=== PATIENT | female | born 1985 | race Caucasian/White ===

== ENCOUNTER 2020-09-10 14:48 | Emergency (ER) | payer BC, OTHER, SELFPAY ==
[~2020-09-10] VITALS: Ht 175.3 cm; Wt 85.7 kg
[2020-09-10 14:48] VITALS: BP 112/63
[2020-09-10] MEDS ORDERED: AUGM875T28 PO (15:24)
[2020-09-10] MEDS ORDERED: KETO10TAB PO (15:24)
[2020-09-10] MEDS ORDERED: LIDVISCBTL SSP (15:24)
== END 2020-09-10 15:47 | disposition home or self-care (01) ==
LOC: M ED 14:48
DX: K04.7 Periapical abscess without sinus (principal); S02.5XXA Fracture of tooth (traumatic), initial encounter for closed fracture; X58.XXXA Exposure to other specified factors, initial encounter; Y92.9 Unspecified place or not applicable; Y93.9 Activity, unspecified; Y99.9 Unspecified external cause status; F17.200 Nicotine dependence, unspecified, uncomplicated; Z88.5 Allergy status to narcotic agent

== ENCOUNTER 2020-09-13 03:44 | Emergency (ER) | payer SELFPAY ==
[~2020-09-13] VITALS: Ht 175.3 cm; Wt 77.3 kg
[~2020-09-13 03:44] MED LIST: AUGM875T28 PO; KETO10TAB PO; LIDVISCBTL SSP
[2020-09-13] MEDS ORDERED: IBUP-1022 PO (03:50)
[2020-09-13] MEDS ORDERED: LIDOCAINE 2% W/ EPINEPHRINE 1.7 ML DENTAL INJ SM ONE (05:45)
[2020-09-13] MEDS: ARTICAINE HCL/EPINEPHRINE 4%-1:200,000 1.7ML INJ (SEPTOCAINE) SM ONE ×2 (05:47→06:04)
[2020-09-13 06:10] VITALS: BP 120/70
== END 2020-09-13 06:10 | disposition home or self-care (01) ==
LOC: M ED 03:44
DX: K08.89 Other specified disorders of teeth and supporting structures (principal); F17.218 Nicotine dependence, cigarettes, with other nicotine-induced disorders; Z88.5 Allergy status to narcotic agent

== ENCOUNTER → 2020-11-27 | Outpatient (CLI) | payer SELFPAY ==
[~2020-11-27] MED LIST changes: +IBUP-1022 PO
== END ==
LOC: M LABSMTC 14:03
PROVIDERS: ATTEND Pediatrics
DX: Z20.822 Contact with and (suspected) exposure to COVID-19 (principal)

== ENCOUNTER 2020-11-28 17:41 | Emergency (ER) | payer SELFPAY ==
[~2020-11-28] VITALS: Ht 175.3 cm; Wt 82.5 kg
[2020-11-28] MEDS ORDERED: NS 1,000 ML IV ONE (18:45)
[2020-11-28] MEDS ORDERED: GI COCKTAIL 50ML BTL(HYOSCYAMINE/MAALOX/LIDOCAINE VISCOUS)(1:3:1) PO ONE (18:45)
[2020-11-28 19:18] LABS: BASO % 0.4 % (0.0-1.0); EOS # 0.1 10^3/uL (0.0-0.5); EOS % 1.9 % (0.0-3.0); HEMATOCRIT 38.4 % (36.0-47.0); HEMOGLOBIN 11.9 g/dl (12.0-15.5); LYMPH # 1.9 10^3/uL (1.5-5.0); LYMPH % 28.4 % (24.0-44.0); MEAN CORPUSCULAR HEMOGLOBIN 27.9 pg (27.0-33.0); MEAN CORPUSCULAR VOLUME 89.9 fl (80.0-96.0); MONO # 0.5 10^3/uL (0.0-0.8); MONO % 6.6 % (0.0-5.0); NEUTROPHILS # 4.2 10^3/uL (1.5-8.5); NEUTROPHILS % 62.4 % (36.0-66.0); PLATELET COUNT, AUTOMATED 218 10^3/uL (150-450); RED BLOOD COUNT 4.27 10^6/uL (4.00-5.40); WHITE BLOOD COUNT 6.8 10^3/uL (4.0-10.0)
[2020-11-28 19:51] LABS: ALBUMIN 4.3 GM/DL (3.2-5.2); ALT/SGPT 22 U/L (12-78); BILIRUBIN,DIRECT 0.1 MG/DL (0.0-0.2); BILIRUBIN,TOTAL 0.4 MG/DL (0.2-1.0); BLOOD UREA NITROGEN 15 MG/DL (7-18); CARBON DIOXIDE LEVEL 24 MEQ/L (21-32); CHLORIDE LEVEL 110 MEQ/L (98-107); CK-MB VALUE MASS < 1.0 NG/ML (<3.6); CPK CREATINE PHOSPHOKINASE 59 U/L (26-192); CREATININE FOR GFR 0.85 MG/DL (0.55-1.30); GLOMERULAR FILTRATION RATE > 60.0 (>60); GLUCOSE, FASTING 79 MG/DL (70-100); LIPASE 409 U/L (73-393); MB/CK RELATIVE INDEX 1.69 (< OR =4); POTASSIUM SERUM 4.4 MEQ/L (3.5-5.1); SODIUM LEVEL 138 MEQ/L (136-145); TOTAL PROTEIN 7.3 GM/DL (6.4-8.2); TROPONIN I < 0.02 NG/ML (< 0.10)
[2020-11-28 20:29] VITALS: BP 114/67
--- NOTE | 2020-11-28 21:55 | ECGEPIP ---
[facility] - ED Test Date: 2020-11-28 Pat Name: SOLOMON NOEL Department: Room: - Gender: Female [employer]: : 1985 Requested By: RAFITA Silveira PA-C Order Number: [id number] Reading MD: Eric Celestin Measurements Intervals [place] Rate: 53 P: 52 NH: 169 QRS: 47 QRSD: 93 T: 23 QT: 398 QTc: 376 Interpretive Statements SINUS BRADYCARDIA WITH SINUS ARRHYTHMIA BENIGN EARLY REPOLARIZATION NO PRIORS FOR COMPARISON Electronically Signed on 11-28-2020 21:55:12 EST by Eric Celestin
== END 2020-11-28 20:29 | disposition home or self-care (01) ==
LOC: M ED 17:41
DX: K85.90 Acute pancreatitis without necrosis or infection, unspecified (principal); R00.1 Bradycardia, unspecified; F11.10 Opioid abuse, uncomplicated; F17.200 Nicotine dependence, unspecified, uncomplicated; Z88.5 Allergy status to narcotic agent

== ENCOUNTER 2022-10-10 15:16 | Inpatient (IN) | payer OTHER, SELFPAY ==
[~2022-10-10] VITALS: Ht 175.3 cm; Wt 90.0 kg
[2022-10-10 16:58] LABS: HEMATOCRIT 40.5 % (36.0-47.0); HEMOGLOBIN 12.6 g/dl (12.0-15.5); MEAN CORPUSCULAR HEMOGLOBIN 26.1 pg (27.0-33.0); MEAN CORPUSCULAR HGB CONC 31.1 g/dl (32.0-36.5); PLATELET COUNT, AUTOMATED 220 10^3/uL (150-450); RED BLOOD COUNT 4.82 10^6/uL (4.00-5.40); WHITE BLOOD COUNT 8.3 10^3/uL (4.0-10.0)
[2022-10-10] MEDS ORDERED: BOOSTRIX/ADACEL VACCINE (DIPHTH/PERTUSS/ACELL/TETANUS) 0.5ML SYR IM.IMMUN ONE (17:20)
[2022-10-10 17:39] LABS: RSV AMPLIFICATION NEGATIVE (NEGATIVE)
[2022-10-10 17:42] LABS: ACETAMINOPHEN LEVEL < 2.0 UG/ML (10.0-20.0); ALBUMIN 4.1 G/DL (3.2-5.2); ALT/SGPT 28 U/L (7.0-40); BILIRUBIN,DIRECT < 0.1 MG/DL (<0.4); BILIRUBIN,TOTAL 0.2 MG/DL (0.3-1.2); BLOOD UREA NITROGEN 9 MG/DL (9-23); CALCIUM LEVEL 8.8 MG/DL (8.5-10.1); CARBON DIOXIDE LEVEL 24 MMOL/L (20-31); CHLORIDE LEVEL 107 MMOL/L (98-107); CREATININE FOR GFR 0.52 MG/DL (0.55-1.30); ETHYL ALCOHOL (ETHANOL) 0.003 % (0.000-0.010); GLOMERULAR FILTRATION RATE > 60.0 (>60); GLUCOSE, FASTING 105 MG/DL (60-100); POTASSIUM SERUM 3.7 MMOL/L (3.5-5.1); SODIUM LEVEL 140 MMOL/L (136-145)
[2022-10-10 17:48] LABS: SALICYLATE LEVEL < 3.0 MG/DL (<30)
[2022-10-10 17:58] LABS: AMPHETAMINES LEVEL URINE NEGATIVE (NEGATIVE); BARBITURATES URINE NEGATIVE (NEGATIVE); BENZODIAZEPINES URINE NEGATIVE (NEGATIVE); CANNABINOIDS URINE POSITIVE (NEGATIVE); COCAINE METABOLITE URINE NEGATIVE (NEGATIVE); METHADONE URINE NEGATIVE (NEGATIVE); OPIATES URINE NEGATIVE (NEGATIVE); PHENCYCLIDINE URINE NEGATIVE (NEGATIVE)
[2022-10-11 08:09] LABS: HCG, SERUM QUALITATIVE NEGATIVE (NEGATIVE)
[2022-10-11] MEDS ORDERED: HOME MED LIST COMPLETE! XX SCH (15:10)
[2022-10-11] MEDS ORDERED: LORazepam 1 MG TAB PO PRN (15:40)
[2022-10-11] MEDS ORDERED: traZODone 50 MG TAB PO PRN (15:40)
[2022-10-11] MEDS ORDERED: MOM 30ML SUSPENSION UDC PO PRN (15:40)
[2022-10-11] MEDS ORDERED: MAALOX 30 ML SUSP *UDC PO PRN (15:40)
[2022-10-11] MEDS ORDERED: IBUPROFEN 400MG TAB PO PRN (15:40)
[2022-10-11] MEDS ORDERED: NICOTINE POLACRILEX 2 MG GUM PO ONE (16:00)
[2022-10-11] MEDS: NICOTINE POLACRILEX 2 MG GUM PO PRN (20:43)
[2022-10-11] MEDS ORDERED: hydrOXYzine 50 MG TAB PO STA (20:47)
[2022-10-12] MEDS: NICOTINE POLACRILEX 2 MG GUM PO PRN ×2 (03:05→11:16)
[2022-10-12] MEDS ORDERED: NICOTINE 21MG/24HR 1 EA TRANSDERMAL TD SCH (09:00)
[2022-10-12 14:22] VITALS: BP 108/56
[2022-10-12] MEDS: NICOTINE 21MG/24HR 1 EA TRANSDERMAL TD SCH (14:35)
[2022-10-12] MEDS: LORazepam 1 MG TAB PO PRN ×2 (14:37→23:07)
[2022-10-13 06:05] VITALS: BP 101/55
[2022-10-13] MEDS: NICOTINE 21MG/24HR 1 EA TRANSDERMAL TD SCH (11:10)
[2022-10-13] MEDS: risperiDONE 1 MG TAB PO SCH ×2 (15:32→21:41)
[2022-10-13 18:02] VITALS: BP 131/58
[2022-10-13] MEDS: QUEtiapine FUMARATE 25 MG TAB PO SCH (21:41)
[2022-10-14 06:13] VITALS: BP 99/54
[2022-10-14] MEDS: risperiDONE 1 MG TAB PO SCH ×2 (10:17→20:46)
[2022-10-14] MEDS: NICOTINE 21MG/24HR 1 EA TRANSDERMAL TD SCH (10:18)
[2022-10-14 18:00] VITALS: BP 146/63
[2022-10-14 19:24] LABS: CHOLESTEROL RISK RATIO 4.31 (<5); HDL CHOLESTEROL 40.3 MG/DL (>40); LDL CHOLESTEROL 120.7 MG/DL (<100)
[2022-10-14] MEDS: traZODone 50 MG TAB PO PRN (20:46)
[2022-10-14] MEDS: QUEtiapine FUMARATE 25 MG TAB PO SCH (20:46)
[2022-10-15 06:39] VITALS: BP 95/64
[2022-10-15] MEDS: risperiDONE 1 MG TAB PO SCH ×2 (10:09→20:33)
[2022-10-15] MEDS: NICOTINE 21MG/24HR 1 EA TRANSDERMAL TD SCH (10:10)
[2022-10-15] MEDS ORDERED: PALIPERIDONE PAL 234MG/1.5ML INJ (INVEGA)(FREE PSY INPT ONLY) IM ONE ×2 (12:15→13:00)
[2022-10-15 18:09] VITALS: BP 105/57
[2022-10-15] MEDS: NICOTINE POLACRILEX 2 MG GUM PO PRN ×2 (18:51→21:03)
[2022-10-15] MEDS: LORazepam 1 MG TAB PO PRN (18:54)
[2022-10-15] MEDS: QUEtiapine FUMARATE 25 MG TAB PO SCH (20:33)
[2022-10-16 06:25] VITALS: BP 97/65
[2022-10-16] MEDS: risperiDONE 1 MG TAB PO SCH ×2 (09:46→20:17)
[2022-10-16] MEDS: NICOTINE POLACRILEX 2 MG GUM PO PRN ×4 (12:55→21:09)
[2022-10-16] MEDS ORDERED: IBUPROFEN 400MG TAB PO PRN (13:05)
[2022-10-16] MEDS ORDERED: IBUPROFEN 800 MG TAB PO ONE (13:30)
[2022-10-16] MEDS ORDERED: IBUPROFEN 600MG TAB PO ONE (13:35)
[2022-10-16 16:18] VITALS: BP 98/60
[2022-10-16] MEDS: traZODone 50 MG TAB PO PRN (20:17)
[2022-10-16] MEDS: QUEtiapine FUMARATE 25 MG TAB PO SCH (20:17)
[2022-10-17 06:20] VITALS: BP 99/53
[2022-10-17] MEDS: risperiDONE 1 MG TAB PO SCH ×2 (09:29→20:20)
[2022-10-17] MEDS: NICOTINE POLACRILEX 2 MG GUM PO PRN ×4 (11:31→20:20)
[2022-10-17 16:38] VITALS: BP 109/88
[2022-10-17] MEDS: QUEtiapine FUMARATE 25 MG TAB PO SCH (20:20)
[2022-10-17] MEDS: traZODone 50 MG TAB PO PRN (20:20)
[2022-10-17] MEDS: LORazepam 1 MG TAB PO PRN (20:21)
[2022-10-18 05:49] VITALS: BP 104/55
[2022-10-18] MEDS: risperiDONE 1 MG TAB PO SCH (09:58)
[2022-10-18] MEDS: NICOTINE POLACRILEX 2 MG GUM PO PRN ×2 (10:00→12:45)
[2022-10-18] MEDS ORDERED: traZODone 25MG PER 1/2 TABLET PO PRN (10:25)
[2022-10-18] MEDS ORDERED: PALIPERIDONE PAL 156MG/1ML INJ(INVEGA)(FREE PSY INPT ONLY) IM ONE (12:00)
[2022-10-18] MEDS ORDERED: HALO5TAB33 PO (13:29)
[2022-10-18] MEDS ORDERED: INVE234I IM (13:29)
[2022-10-18] MEDS ORDERED: QUET1TAB17 PO (13:29)
[2022-10-18] MEDS ORDERED: TRAZ-252 PO (13:29)
[2022-10-18] MEDS ORDERED: RISP-8 PO (13:29)
[2022-10-18] MEDS ORDERED: NICO2GUM PO (13:29)
== END 2022-10-18 14:02 | disposition home or self-care (01) | DRG 750 ==
LOC: M ED 15:16 → UNDOADMIN 10-11 15:39 → M ED INP 10-11 15:39 → M PSY 10-12 14:06
PROVIDERS: ADMIT Psychiatry & Neurology Psychiatry; ATTEND Student in an Organized Health Care Education/Training Program
DX: F25.1 Schizoaffective disorder, depressive type (principal); Z91.14 Patient's other noncompliance with medication regimen; R45.851 Suicidal ideations; Z91.52 Personal history of nonsuicidal self-harm; Z91.51 Personal history of suicidal behavior; F17.210 Nicotine dependence, cigarettes, uncomplicated; Z88.5 Allergy status to narcotic agent; Z71.6 Tobacco abuse counseling

== ENCOUNTER 2023-02-21 13:44 | Emergency (ER) | payer OTHER ==
[~2023-02-21] VITALS: Ht 175.3 cm; Wt 96.8 kg
[~2023-02-21 13:44] MED LIST changes: +HALO5TAB33 PO; +INVE234I IM; +NICO2GUM PO; +QUET1TAB17 PO; +RISP-8 PO; +TRAZ-252 PO
[2023-02-21 16:15] VITALS: BP 120/67
== END 2023-02-21 16:23 | disposition home or self-care (01) ==
LOC: M ED 13:44
DX: F29 Unspecified psychosis not due to a substance or known physiological condition (principal); F17.200 Nicotine dependence, unspecified, uncomplicated; Z79.899 Other long term (current) drug therapy; Z88.5 Allergy status to narcotic agent

== ENCOUNTER → 2024-09-29 | Outpatient (REF) | payer OTHER ==
[~2024-09-29] MED LIST changes: +RISP-105 PO; -RISP-8 PO
[2024-09-29 18:10] LABS: APPEARANCE, URINE CLOUDY (CLEAR); BACTERIA, URINE AUTO 1+ (NEGATIVE); BILIRUBIN, URINE AUTO NEGATIVE (NEGATIVE); BLOOD, URINE BLOOD NEGATIVE (NEGATIVE); COLOR, URINE AMBER (YELLOW); GLUCOSE, URINE (UA) AUTO NEGATIVE (NEGATIVE); KETONE, URINE AUTO 1+ mg/dL (NEGATIVE); LEUKOCYTE ESTERASE, URINE AUTO 1+ (NEGATIVE); MUCUS, URINE LARGE (NEGATIVE); NITRITE, URINE AUTO POSITIVE (NEGATIVE); PROTEIN, URINE AUTO 1+ mg/dL (NEGATIVE); RBC, URINE AUTO 17 /HPF (0-3); SPECIFIC GRAVITY URINE AUTO 1.026 (1.002-1.035); SQUAMOUS EPITHELIAL CELL UR AU 11 /HPF (0-6); WBC, URINE AUTO 45 /HPF (0-3)
== END ==
LOC: M LAB REF 17:25
PROVIDERS: ATTEND Physician Assistant Medical
DX: N39.0 Urinary tract infection, site not specified (principal)

== ENCOUNTER 2024-12-03 18:06 | Emergency (ER) | payer OTHER ==
[~2024-12-03] VITALS: Ht 175.3 cm; Wt 101.7 kg
[2024-12-03] MEDS ORDERED: CLON0.2T (18:20)
[2024-12-03] MEDS ORDERED: CLON0.5T2 (18:20)
[2024-12-03 18:56] LABS: BASO % 0.4 % (0.0-1.0); EOS # 0.2 10^3/uL (0.0-0.5); HEMATOCRIT 41.9 % (36.0-47.0); HEMOGLOBIN 13.6 g/dl (12.0-15.5); LYMPH # 1.7 10^3/uL (1.5-5.0); LYMPH % 21.1 % (24.0-44.0); MEAN CORPUSCULAR HEMOGLOBIN 29.3 pg (27.0-33.0); MEAN CORPUSCULAR HGB CONC 32.5 g/dl (32.0-36.5); MEAN CORPUSCULAR VOLUME 90.3 fl (80.0-96.0); MONO # 0.5 10^3/uL (0.0-0.8); MONO % 6.2 % (2.0-8.0); NEUTROPHILS # 5.5 10^3/uL (1.5-8.5); PLATELET COUNT, AUTOMATED 266 10^3/uL (150-450); RED BLOOD COUNT 4.64 10^6/uL (4.00-5.40); WHITE BLOOD COUNT 7.9 10^3/uL (4.0-10.0)
[2024-12-03] MEDS: PANTOPRAZOLE 40MG VIAL IV ONE (19:18)
[2024-12-03 19:23] LABS: LIPASE 35 U/L (12-53)
[2024-12-03 19:25] LABS: ALBUMIN 3.9 G/DL (3.2-5.2); ALKALINE PHOSPHATASE 73 U/L (35-104); ALT/SGPT 41 U/L (7.0-40); AST/SGOT 23 U/L (<34); BILIRUBIN,DIRECT 0.1 MG/DL (<0.4); BILIRUBIN,TOTAL 0.4 MG/DL (0.3-1.2); BLOOD UREA NITROGEN 15 MG/DL (9-23); CALCIUM LEVEL 8.9 MG/DL (8.5-10.1); CARBON DIOXIDE LEVEL 28 MMOL/L (20-31); CHLORIDE LEVEL 106 MMOL/L (98-107); CK-MB VALUE MASS < 1.0 NG/ML (<3.6); CREATININE FOR GFR 0.83 MG/DL (0.55-1.30); GLOMERULAR FILTRATION RATE > 60.0 (>60); GLUCOSE, FASTING 77 MG/DL (60-100); POTASSIUM SERUM 4.3 MMOL/L (3.5-5.1); SODIUM LEVEL 141 MMOL/L (136-145); TOTAL PROTEIN 7.3 G/DL (5.7-8.2)
[2024-12-03 19:27] LABS: HCG, SERUM QUALITATIVE NEGATIVE (NEGATIVE)
[2024-12-03 19:29] LABS: THYROID STIMULATING HORMONE 1.396 uIU/ML (0.55-4.78)
[2024-12-03 19:32] LABS: CPK CREATINE PHOSPHOKINASE 63 U/L (34-145); MB/CK RELATIVE INDEX 1.58 (< OR =4)
[2024-12-03] MEDS ORDERED: PROT1TAB2 PO (21:10)
[2024-12-03 21:30] VITALS: BP 109/67; TEMP 97.1; O2SAT 98
== END 2024-12-03 21:30 | disposition home or self-care (01) ==
LOC: M ED 18:06
DX: K29.00 Acute gastritis without bleeding (principal); F17.200 Nicotine dependence, unspecified, uncomplicated; F19.10 Other psychoactive substance abuse, uncomplicated; Z88.5 Allergy status to narcotic agent; Z79.899 Other long term (current) drug therapy
CPT/HCPCS: 71045; 76705; 80048; 80076; 82550; 82553; 83690; 84443; 84484; 84703; 85025; 93005; 93041; 94760; 96374; 99284; J2470

== ENCOUNTER → 2025-02-15 | Outpatient (REF) | payer OTHER ==
[~2025-02-15] MED LIST changes: +CLON0.2T; +CLON0.5T2; +PROT1TAB2 PO
[2025-02-15 21:25] LABS: APPEARANCE, URINE CLOUDY (CLEAR); BACTERIA, URINE AUTO 2+ (NEGATIVE); BILIRUBIN, URINE AUTO NEGATIVE (NEGATIVE); BLOOD, URINE BLOOD 1+ (NEGATIVE); COLOR, URINE AMBER (YELLOW); GLUCOSE, URINE (UA) AUTO NEGATIVE (NEGATIVE); KETONE, URINE AUTO NEGATIVE (NEGATIVE); LEUKOCYTE ESTERASE, URINE AUTO 3+ (NEGATIVE); MUCUS, URINE SMALL (NEGATIVE); NITRITE, URINE AUTO POSITIVE (NEGATIVE); PROTEIN, URINE AUTO 2+ mg/dL (NEGATIVE); RBC, URINE AUTO 10 /HPF (0-3); SQUAMOUS EPITHELIAL CELL UR AU 16 /HPF (0-6); UROBILINOGEN, URINE AUTO 0.2 mg/dL (0.0-2.0); WBC, URINE AUTO TNTC /HPF (0-3)
== END ==
LOC: M LAB REF 21:00
PROVIDERS: ATTEND Physician Assistant
DX: N39.0 Urinary tract infection, site not specified (principal)